=== PATIENT | female | born 1950 | race Caucasian/White ===

== ENCOUNTER → 2017-03-26 09:30 | Outpatient (CLI) | payer MEDICARE, OTHER, SELFPAY ==
--- NOTE | 2017-03-26 10:05 | XR_ITS ---
XR chest 2V HISTORY: ITS.REASON: SHORTNESS OF BREATH ORDERING PHYSICIAN: Lolly Larios PATIENT AGE: 66 years COMPARISON: None available FINDINGS: Mild cardiomegaly without failure.. The lungs are clear without infiltrates, suspicious nodules, or pleural effusions. Degenerative change thoracic spine. IMPRESSION: Cardiomegaly, no acute finding
[2017-03-26 10:25] LABS: Basophils # 0.1 K/mm3 (0-0.2); Basophils % 0.6 % (0.1-2.0); Eosinophils # 0.5 K/mm3 (0.0-0.4); Eosinophils % 6.4 % (0.1-12.0); Hematocrit 43.5 % (37.0-47.0); Hemoglobin 14.2 g/dL (12.2-16.2); Lymphocytes # 1.4 K/mm3 (0.7-4.5); Lymphocytes % 16.7 K/mm3 (10-50); Mean Corpuscular HGB Conc 32.6 g/dL (31.8-35.4); Mean Corpuscular Hemoglobin 28.6 pg (27.0-31.2); Mean Corpuscular Volume 87.7 fl (81-99); Monocytes # 0.5 K/mm3 (0.1-1.0); Monocytes % 5.9 % (1.7-9.3); Neutrophils # 5.8 K/mm3 (1.8-7.8); Neutrophils % 70.4 % (37.0-80.0); Platelet Count 276 K/mm3 (142-424); Red Blood Count 4.96 M/mm3 (4.20-5.40); Red Cell Distribution Width 14.7 % (11.5-17.5); White Blood Count 8.3 K/mm3 (4.8-10.8)
[2017-03-26 12:01] LABS: Alanine Aminotransferase 51 U/L (12-78); Albumin Level 4.3 gm/dL (3.4-5.0); Albumin/Globulin Ratio 1.3 (1.1-1.8); Alkaline Phosphatase 75 U/L (46-116); Anion Gap 15.9 mEq/L (5-15); Aspartate Amino Transferase 47 U/L (15-37); Bilirubin,Total 0.5 mg/dL (0.2-1.0); Blood Urea Nitrogen 13 mg/dL (7-18); Calcium 9.6 mg/dL (8.5-10.1); Carbon Dioxide 26 mmol/L (21.0-32.0); Chloride 105 mmol/L (98-107); Creatinine,Serum 0.94 mg/dL (0.55-1.02); Estimated Glomerular Filt Rate 60 ml/min (>60); GFR (African American) 72 ML/MIN (>60); Globulin 3.4 gm/dl (1.3-3.2); Glucose 168 mg/dL (74-106); Potassium 3.9 mmoL/L (3.5-5.1); Sodium 143 mmol/L (136-145); Total Protein,Serum 7.7 gm/dL (6.4-8.2)
== END ==
PROVIDERS: PCP Nurse Practitioner Family; Visit Provider Nurse Practitioner Family
DX: J18.9 Pneumonia, unspecified organism (principal); R06.02 Shortness of breath
CPT/HCPCS: 36415; 71046; 80053; 85025

== ENCOUNTER → 2017-04-15 09:42 | Outpatient (CLI) | payer MEDICARE, OTHER, SELFPAY ==
[2017-04-15 10:15] VITALS: PULSE 78
== END ==
PROVIDERS: Family Provider Nurse Practitioner Family; PCP Nurse Practitioner Family; Visit Provider Nurse Practitioner Family
DX: R06.02 Shortness of breath (principal); J45.20 Mild intermittent asthma, uncomplicated
CPT/HCPCS: 94060; 94640

== ENCOUNTER → 2017-04-16 06:53 | Outpatient (CLI) | payer MEDICARE, OTHER, SELFPAY ==
--- NOTE | 2017-04-16 | CA_ITS ---
PROCEDURE: 2-D M-mode and color Doppler study INDICATIONS FOR THE TEST: Chest pain+ COPD Heart Murmur+ Tobacco Smoking Palpitations Fatigue Syncope Edema Hypertension+Diabetes Mellitus Rheumatic Fever SOB JACOBS+Obesity+Hyperlipidemia Family History HD Additional History PATIENT INFORMATION HEIGHT: 64 WEIGHT:247 GENDER: Female B/P:134/68 2-D/M-MODE INTERPRETATION: 2-D MEASUREMENTS OBSERVED VALUES IN CMS Right Ventricular Dimension (RVDd) 2.4 Interventricular Septum (Thickness)(IVsd) 1.3 Left Ventricular Internal Dimensions(LVIDd) 4.8 Left Ventricular Posterior Wall (Thickness)(LVPWd) 1.2 Aortic Root 3.1 Aortic Cusp Separation 2.3 Left Atrial Dimensions (LAD) 4.2 2D 1. Left atrium is mildly enlarged, left ventricle is normal size, there is mild concentric left ventricular hypertrophy, visually estimated ejection fraction 55% with no obvious regional wall motion abnormality. 2. The right atrium and right ventricle are normal size and contractility. 3. The aortic valve is minimally thickened and fibrosed. 4. The mitral valve has mitral calcification, there is no mitral stenosis. 5. The tricuspid valve is grossly normal. 6. The pulmonic valve is poorly visualized. 7. No significant pericardial effusion noted. DOPPLER INTERROGATION: Doppler interrogation of the aortic, mitral and tricuspid valve reveals presence of mild mitral and tricuspid regurgitation, tricuspid regurgitant jet velocity insufficient for calculation of the right ventricular systolic pressure, grade 1 diastolic dysfunction seen with tissue Doppler evidence of raised left atrial pressure. CONCLUSION: 1. Mildly enlarged left atrium, normal left ventricular size, mild concentric left ventricular hypertrophy, visually estimated ejection fraction 55% with no obvious regional wall motion abnormality, grade 1 diastolic dysfunction seen with tissue Doppler evidence of raised left atrial pressure. 2. Mild mitral and tricuspid regurgitation 3. No significant pericardial effusion noted.
--- NOTE | 2017-04-16 06:55 | NM_ITS ---
History and Indications: Obesity, hypertension, diabetes hyperlipidemia Procedure: Patient received a 0.4 mg of Lexiscan, resting heart rate was 71 resting blood pressure 134/68, with Lexiscan maximum heart rate achieved was 98 bpm which is less than 85% of the maximum predicted heart rate and a blood pressure was 132/64. With Lexiscan patient under shortness of breath and stomach discomfort. Electrocardiogram: Resting electrocardiogram showed sinus rhythm, with Lexiscan there is less than 1.[address] segment depression noted from the baseline EKG. The EKG portion of the Lexiscan Myoview is nondiagnostic. Cardiac stress and resting SPECT images: Cardiac stress and rest SPECT images were obtained using technetium 99 Myoview 10.7 mCi at rest and 29.1 mCi at stress, gated SPECT further analysis of segmental wall motion and calculation of the ejection fraction also done. Cardiac stress and rest SPECT images show decreased tracer activity in the anteroapical ,anteroseptal wall which improves on the resting images suggestive of reversible ischemia, computer derived ejection fraction is over 65% with no obvious regional wall motion abnormality, right ventricle is normal size and contractility. Conclusion: 1. The EKG portion of the Lexiscan Myoview is nondiagnostic. 2. Scintigraphic evidence of mild reversible ischemia involving the anterior, anteroapical and anteroseptal wall, computer derived ejection fraction is over 65% with no obvious regional wall motion abnormality, right ventricle is normal size and contractility. 3. Abnormal Lexiscan Myoview study.
--- NOTE | 2017-04-16 06:55 | CT_ITS ---
CT heart w calcium score CLINICAL INDICATION: Shortness of air, cardiomegaly ORDERING PHYSICIAN: Aneudy Dennison MD PATIENT AGE: 66 years COMPARISON: None FINDINGS: The coronary artery calcium score is 891 indicating an extensive plaque burden with very high cardiovascular disease risk. IMPRESSION: High cardiovascular disease risk with elevated coronary artery calcium score of 891
--- NOTE | 2017-04-16 09:23 | HMH.ITSHM ---
METFORMIN, NIFEDIPINE, PREVASTATIN, LISINOPRIL, GLYBURISE, FENOFIBRATE, ASPIRIN
== END ==
PROVIDERS: Family Provider Nurse Practitioner Family; PCP Nurse Practitioner Family; Visit Provider Internal Medicine Cardiovascular Disease
DX: R06.00 Dyspnea, unspecified (principal); R06.02 Shortness of breath; R06.01 Orthopnea; R09.89 Other specified symptoms and signs involving the circulatory and respiratory systems; R01.1 Cardiac murmur, unspecified; I51.7 Cardiomegaly; I10 Essential (primary) hypertension; Z82.49 Family history of ischemic heart disease and other diseases of the circulatory system; E78.5 Hyperlipidemia, unspecified
CPT/HCPCS: 75571; 78452; 93017; 93306; A9502; J2785

== ENCOUNTER → 2017-04-23 11:16 | Outpatient (CLI) | payer MEDICARE, OTHER, SELFPAY ==
[2017-04-23 12:03] LABS: Basophils # 0.1 K/mm3 (0-0.2); Basophils % 0.6 % (0.1-2.0); Eosinophils # 0.6 K/mm3 (0.0-0.4); Eosinophils % 7.4 % (0.1-12.0); Hematocrit 41.6 % (37.0-47.0); Hemoglobin 13.6 g/dL (12.2-16.2); Lymphocytes # 1.2 K/mm3 (0.7-4.5); Lymphocytes % 16.4 K/mm3 (10-50); Mean Corpuscular HGB Conc 32.6 g/dL (31.8-35.4); Mean Corpuscular Hemoglobin 28.4 pg (27.0-31.2); Mean Corpuscular Volume 87.1 fl (81-99); Monocytes # 0.5 K/mm3 (0.1-1.0); Monocytes % 6.6 % (1.7-9.3); Neutrophils # 5.1 K/mm3 (1.8-7.8); Neutrophils % 68.9 % (37.0-80.0); Platelet Count 243 K/mm3 (142-424); Red Blood Count 4.78 M/mm3 (4.20-5.40); Red Cell Distribution Width 14.6 % (11.5-17.5); White Blood Count 7.4 K/mm3 (4.8-10.8)
[2017-04-23 12:34] LABS: INR 0.99 (0.9-1.1); Prothrombin Time 10.7 seconds (9.4-11.8)
[2017-04-23 13:00] LABS: Anion Gap 14.6 mEq/L (5-15); Blood Urea Nitrogen 19 mg/dL (7-18); Carbon Dioxide 28 mmol/L (21.0-32.0); Chloride 109 mmol/L (98-107); Creatinine,Serum 0.76 mg/dL (0.55-1.02); Estimated Glomerular Filt Rate 76 ml/min (>60); GFR (African American) 92 ML/MIN (>60); Glucose 113 mg/dL (74-106); Potassium 4.6 mmoL/L (3.5-5.1); Sodium 147 mmol/L (136-145)
== END ==
PROVIDERS: PCP Nurse Practitioner Family; Visit Provider Internal Medicine Cardiovascular Disease
DX: I65.23 Occlusion and stenosis of bilateral carotid arteries (principal); I10 Essential (primary) hypertension; E78.5 Hyperlipidemia, unspecified; Z82.49 Family history of ischemic heart disease and other diseases of the circulatory system; R06.09 Other forms of dyspnea
CPT/HCPCS: 36415; 80048; 85025; 85610

== ENCOUNTER → 2017-04-26 14:46 | Outpatient (CLI) | payer MEDICARE, OTHER, SELFPAY ==
--- NOTE | 2017-04-26 14:47 | CI_ITS ---
Cerebrovascular Exam Indications: 785.9 Bruit. IMPRESSIONS 1. The bilateral vertebral arteries are patent with normal antegrade flow. 2. Study suggests less than 20% stenosis involving the right internal carotid artery and the left internal carotid artery. 3. Tortuous carotid arteries seen on the left History: Risk factors: Hypertension. Hyperlipidemia. Carotid duplex study. Complete study and Doppler flow study including spectral analysis, color and romo scale imaging. Height: Height: 162.6cm. Height: 64in. Weight: Weight: 112kg. Weight: 246.5lb. Body mass index: BMI: 42.4kg/m^2. Body surface area: BSA: 2.31m^2. Location: Vascular laboratory. Patient status: Outpatient. Tables: Arterial flow: + +--------+--------+ Location V sys V ed + +--------+--------+ Right CCA - proximal 86.4cm/s 14.1cm/s + +--------+--------+ Right CCA - distal 89.6cm/s 15.7cm/s + +--------+--------+ Right ECA 108cm/s -------- + +--------+--------+ Right ICA - proximal 105cm/s 14.9cm/s + +--------+--------+ Right ICA - mid 55cm/s 13.4cm/s + +--------+--------+ Right ICA - distal 64.4cm/s 14.9cm/s + +--------+--------+ Right vertebral 35.4cm/s -------- + +--------+--------+ Left CCA - proximal 99cm/s 11cm/s + +--------+--------+ Left CCA - distal 125cm/s 13.4cm/s + +--------+--------+ Left ECA 64.4cm/s -------- + +--------+--------+ Left ICA - proximal 69.9cm/s 10.2cm/s + +--------+--------+ Left ICA - mid 61.3cm/s 16.5cm/s + +--------+--------+ Left ICA - distal 80.9cm/s 13.4cm/s + +--------+--------+ Left vertebral 46.4cm/s -------- + +--------+--------+ Velocity ratios: + + + + + + Right, V sys Right, V ed Left, V sys Left, V ed + + + + + + Max ICA/dist CCA 1.17 0.95 0.65 1.23 + + + + + + (Report amended ) Electronically signed by: Griffin Greene [id number]
== END ==
PROVIDERS: Family Provider Nurse Practitioner Family; PCP Nurse Practitioner Family; Visit Provider Internal Medicine
DX: R09.89 Other specified symptoms and signs involving the circulatory and respiratory systems (principal); I51.7 Cardiomegaly; R01.1 Cardiac murmur, unspecified; I10 Essential (primary) hypertension; E78.5 Hyperlipidemia, unspecified; Z82.49 Family history of ischemic heart disease and other diseases of the circulatory system; R06.09 Other forms of dyspnea
CPT/HCPCS: 93880

== ENCOUNTER 2017-04-27 06:59 | Day surgery (SDC) | payer MEDICARE, OTHER, SELFPAY ==
[2017-04-27] VITALS (15 sets, daily range): BP systolic 113–137; BP diastolic 61–88; PULSE 61–74; RESP 16–20; TEMP 36.7; O2SAT 92–97; BMI 43.2
--- NOTE | 2017-04-27 | IR_ITS ---
CARDIAC CATHETERIZATION DATE OF CATHETERIZATION:04/27/2017 8:47 AM PROCEDURES: 1. Left heart catheterization 2. Left ventriculogram 3. Selective coronary angiogram 4. Drug-eluting stent deployment to the dominant circumflex artery 5. Drug-eluting stent deployment to the proximal and mid left anterior descending artery INDICATION FOR TEST: 1. Coronary artery disease 2. Angina pectoris class III and IV 3. High risk abnormal stress test with anterior apical ischemia Informed consent was obtained prior to the procedure. COMPLICATIONS: None ESTIMATED BLOOD LOSS: Less than 10 ml. TECHNIQUE: One percent lidocaine used to anesthetize the right anterior aspect of the wrist. The right radial artery was accessed via the Seldinger technique. A 6 [place] sheath was placed in the right radial artery. 2.5 mg of verapamil, 800 mcg of nitroglycerin and 5000 U Heparin were given through the arterial sheath. The trap catheter was also used to perform left heart catheterization left ventriculogram and selective coronary angiogram. At the end of the diagnostic angiogram and additional 7000 units of heparin was administered intravenously producing an ACT of 333 seconds. Following this a JL 3 guide catheter was used to intubate the left main artery. A choice PT wire was placed into the high first obtuse marginal artery or the ramus intermedius and a 2.5 x 15 mm resolute Union stent was deployed at 16 viviana reducing the severe stenosis to 0%. A fresh wire was in placed into the LAD. Primary stenting with a 3 mm stent could not be performed even with the guideliner the stent could not be advanced beyond the stenotic lesion. A 3 mm x 12 mm balloon was used to predilate the stenosis at 20 viviana. Following this a 3 mm x 34 mm resolute Union stent was deployed at 18 viviana reducing the severe stenosis to 0%. An additional 3.5 x 12 mm resolute Hugo stent was placed proximal to the first LAD stent yet still overlapping it and deployed at 18 viviana further reducing the proximal stenosis to 0%. PINO-3 flow was present before and after the procedure. At the end of the interventional procedure the ACT was 247 seconds. Patient did not receive her Brilinta yet therefore an additional 4000 units of heparin was administered intravenously and Brilinta was administered orally along with 325 mg of aspirin. The sheath was removed good hemostasis was achieved using TR banding patient was transferred to the postop holding area in stable condition ANGIOGRAPHIC RESULTS: 1. The left main artery normal 2. The left anterior descending artery has proximal 20% stenoses followed by a focal mid vessel 70% stenosis followed by an additional 40% stenosis. Distally there were 50% stenoses in the mid to distal LAD and an additional 70-80% very distal stenosis as the LAD at the apex. 3. The circumflex artery is a dominant vessel and gives rise to a large first ramus intermedius or obtuse marginal artery which has a proximal 70% concentric stenosis. The second obtuse marginal artery has an ostial 80-90% stenosis and is a 1.5 mm vessel. The terminal obtuse marginal artery has 40% stenoses 4. The right coronary artery is a nondominant vessel and proximally occluded. The distal vessel fills via left to right collaterals 5. The YAN ventriculogram reveals hyperdynamic ventricle estimated at 70% 6. The left ventricular end-diastolic pressure elevated at 30 mmHg IMPRESSION: 1. Severe coronary artery disease as described above 2. Successful stenting of the proximal and mid LAD severe disease reduced to 0% with 2 drug-eluting stents 3. Successful stenting of the proximal dominant circumflex artery/ramus intermedius. Severe disease reduced to 0% with 1 drug-eluting stent 4. Chronically occluded right coronary artery with left to
[2017-04-27 07:54] LABS: Basophils # 0.1 K/mm3 (0-0.2); Basophils % 0.8 % (0.1-2.0); Eosinophils # 0.5 K/mm3 (0.0-0.4); Eosinophils % 6.3 % (0.1-12.0); Hematocrit 41.2 % (37.0-47.0); Hemoglobin 13.1 g/dL (12.2-16.2); Lymphocytes # 1.3 K/mm3 (0.7-4.5); Lymphocytes % 17.9 K/mm3 (10-50); Mean Corpuscular HGB Conc 31.8 g/dL (31.8-35.4); Mean Corpuscular Hemoglobin 27.8 pg (27.0-31.2); Mean Corpuscular Volume 87.4 fl (81-99); Mean Platelet Volume 7.8 fl (7.4-10.4); Monocytes # 0.4 K/mm3 (0.1-1.0); Monocytes % 6.1 % (1.7-9.3); Platelet Count 244 K/mm3 (142-424); Red Blood Count 4.72 M/mm3 (4.20-5.40); Red Cell Distribution Width 14.5 % (11.5-17.5); White Blood Count 7.2 K/mm3 (4.8-10.8)
[2017-04-27 07:56] LABS: Anion Gap 14.1 mEq/L (5-15); Blood Urea Nitrogen 15 mg/dL (7-18); Carbon Dioxide 26 mmol/L (21.0-32.0); Chloride 105 mmol/L (98-107); Creatinine Clearance Estimated 48 mL/min (0-300); Estimated Glomerular Filt Rate 72 ml/min (>60); GFR (African American) 87 ML/MIN (>60); Glucose 177 mg/dL (74-106); Potassium 4.1 mmoL/L (3.5-5.1); Sodium 141 mmol/L (136-145)
[2017-04-27 15:07] LABS: CATHL Activated Clotting Time 247 SEC (74-125)
[2017-04-27 15:08] LABS: CATHL Activated Clotting Time 333 SEC (74-125)
== END 2017-04-27 13:30 | disposition home or self-care (01) ==
PROVIDERS: Family Provider Nurse Practitioner Family; PCP Nurse Practitioner Family; Visit Provider Internal Medicine
DX: I51.7 Cardiomegaly (principal); I25.119 Atherosclerotic heart disease of native coronary artery with unspecified angina pectoris; I25.5 Ischemic cardiomyopathy; I50.30 Unspecified diastolic (congestive) heart failure; I11.0 Hypertensive heart disease with heart failure; E11.9 Type 2 diabetes mellitus without complications
CPT/HCPCS: 80048; 85025; 85347; 92928; 93458; 99152; 99153; C1725; C1769; C1876; C9600; J1644; Q9967

== ENCOUNTER 2017-05-11 09:50 | Outpatient (RCR) | payer MEDICARE, OTHER, SELFPAY | END 2017-07-14 11:13 | disposition home or self-care (01) | LOC: PT 09:50 | PROVIDERS: Family Provider Nurse Practitioner Family; PCP Nurse Practitioner Family; Visit Provider Internal Medicine | DX: Z95.5 Presence of coronary angioplasty implant and graft (principal) | CPT/HCPCS: 93798 ==

== ENCOUNTER → 2017-05-20 09:22 | Outpatient (CLI) | payer MEDICARE, OTHER, SELFPAY ==
--- NOTE | 2017-05-20 09:31 | XR_ITS ---
XR ankle LT min 3V HISTORY: ITS.REASON: ACUTE LT ANKLE PAIN ORDERING PHYSICIAN: Lolly Larios PATIENT AGE: 66 years COMPARISON: None FINDINGS: No fracture or dislocation. Hypertrophic changes are present at the medial malleolus region and to a lesser degree at the lateral malleolus and could be related to old injury. Space is well-preserved. Calcaneal spur is present and there is an enthesophyte of the Achilles. There is minimal calcification along the plantar surface of the heel superficial to the calcaneal spur. IMPRESSION: 1. No acute finding. 2. Hypertrophic changes about the ankle and heel as described above
== END ==
PROVIDERS: PCP Family Medicine; Visit Provider Nurse Practitioner Family
DX: M25.572 Pain in left ankle and joints of left foot (principal)
CPT/HCPCS: 73610

== ENCOUNTER → 2018-03-31 11:29 | Outpatient (CLI) | payer MEDICARE, OTHER, SELFPAY ==
--- NOTE | 2018-03-31 11:36 | XR_ITS ---
XR knee LT 3V HISTORY: Left knee pain ITS.REASON: LT KNEE PAIN ORDERING PHYSICIAN: Lolly Larios PATIENT AGE: 67 years COMPARISON: None FINDINGS: There are moderate osteoarthritic changes of the medial compartment and patellofemoral joint with mild osteoarthritis of the lateral compartment. Osteophytes are present about the knee joint. No fracture or dislocation. No lytic or blastic change. IMPRESSION: Moderate osteoarthritis of the knee
== END ==
PROVIDERS: PCP Nurse Practitioner Family; Visit Provider Nurse Practitioner Family
DX: M25.562 Pain in left knee (principal)
CPT/HCPCS: 73562

== ENCOUNTER → 2018-07-11 09:31 | Outpatient (CLI) | payer MEDICARE, OTHER, SELFPAY ==
--- NOTE | 2018-07-11 09:39 | XR_ITS ---
EXAM: XR lumbar spine min 4V HISTORY: ITS.REASON: LEFT SIDED LOW BACK PAIN ORDERING PHYSICIAN: Lolly Larios APRN PATIENT AGE: 68 years COMPARISON: None FINDINGS: There is minimal upper lumbar curvature convex right. There is degenerative disc disease in the lower thoracic spine and T12-L1. No fracture or dislocation. There are mild facet hypertrophic changes at L3 and moderate facet hypertrophic changes at L4 and L5. Mild degenerative changes are present in the SI joints. No fracture or dislocation. No lytic or blastic change IMPRESSION: 1. No acute finding. 2. Degenerative changes as described above
== END ==
PROVIDERS: PCP Nurse Practitioner Family; Visit Provider Nurse Practitioner Family
DX: M54.42 Lumbago with sciatica, left side (principal)
CPT/HCPCS: 72110

== ENCOUNTER → 2019-08-30 09:57 | Outpatient (CLI) | payer MEDICARE, OTHER, SELFPAY ==
--- NOTE | 2019-08-30 10:05 | XR_ITS ---
PROCEDURE: XR FOOT RT MIN 3V CLINICAL INDICATION: SWELLING OF TOE RT FOOT COMPARISON: No exams were available for comparison FINDINGS: There is a nondisplaced fracture involving the mid aspect of the proximal phalanx of the great toe The joint spaces are well-preserved. No significant degenerative/arthritic changes. No erosive changes evident. Other findings:Type 1 os navicularis is present. IMPRESSION: Nondisplaced fracture proximal phalanx great toe Dictated by: Griffin Greene MD 08/30/2019 14:08 Electronically signed by Griffin Greene MD in [place] 08/30/2019 14:08
== END ==
PROVIDERS: PCP Nurse Practitioner Family; Visit Provider Nurse Practitioner
DX: M79.89 Other specified soft tissue disorders (principal)
CPT/HCPCS: 73630

== ENCOUNTER → 2019-09-18 09:34 | Outpatient (CLI) | payer MEDICARE, OTHER, SELFPAY ==
--- NOTE | 2019-09-18 09:40 | XR_ITS ---
PROCEDURE: XR FOOT RT MIN 3V CLINICAL INDICATION: FRACTURE OF PROXIMAL PHALANX OF TOE ON R FOOT COMPARISON: XR FOOT RT MIN 3V from 08/30/2019 FINDINGS: Healing fracture involves the proximal phalanx of the great toe distally extending into the articular surface of the interphalangeal joint.. Fracture line is still visible. There is some developing callus formation The joint spaces are well-preserved. No significant degenerative/arthritic changes. No erosive changes evident. Other findings:None. IMPRESSION: Healing nondisplaced fracture proximal phalanx great toe Dictated by: Griffin Greene MD 09/18/2019 14:14 Electronically signed by Griffin Greene MD in [place] 09/18/2019 14:14
== END ==
PROVIDERS: PCP Nurse Practitioner Family; Visit Provider Nurse Practitioner Family
DX: S92.911A Unspecified fracture of right toe(s), initial encounter for closed fracture (principal)
CPT/HCPCS: 73630

== ENCOUNTER → 2019-09-22 09:28 | Outpatient (CLI) | payer MEDICARE, OTHER, SELFPAY ==
--- NOTE | 2019-09-22 09:28 | CA_ITS ---
APPROVED REPORT Airplane First Officer: Valerie Mcgrath RVT Laterality: Bilateral Study Quality: Good Indications: Carotid stenosis Risk Factors Hypertension: Hyperlipidemia Smoking Doppler Spectral Velocity Analysis ECA (R) 90.80/8.70 cm/s ECA (L) 90.70/4.00 cm/s dICA (R) 70.90/16.80 cm/s dICA (L) 73.40/20.80 cm/s Remigio (R) 46.00/8.10 cm/s Remigio (L) 55.50/15.30 cm/s pICA (R) 89.00/13.10 cm/s pICA (L) 33.30/8.30 cm/s dCCA (R) 102.60/11.40 cm/s dCCA (L) 120.90/15.10 cm/s pCCA (R) 96.00/12.80 cm/s pCCA (L) 114.00/11.00 cm/s Vert (R) 37.10/8.90 cm/s Vert (L) 33.00/10.60 cm/s ICA/CCA 0.87 ICA/CCA 0.61 Conclusion Study suggests less than 20% stenosis of the right internal cartoid artery, unchanged from the 04/26/17 study. Study suggests 20-49% stenosis of the left internal cartoid artery, worsened from the 04/26/17 study. Antegrade flow seen bilateral vertebral arteries. Electronically signed by : Griffin Greene MD 09/22/2019 17:45:07
== END ==
PROVIDERS: PCP Nurse Practitioner Family; Visit Provider Urology
DX: I65.23 Occlusion and stenosis of bilateral carotid arteries (principal)
CPT/HCPCS: 93880

== ENCOUNTER 2020-01-13 08:53 | Emergency (ER) | payer MEDICARE, OTHER, SELFPAY ==
--- NOTE | 2020-01-13 09:10 | XR_ITS ---
PROCEDURE: XR ANKLE RT MIN 3V CLINICAL INDICATION: fall Posttraumatic pain and swelling COMPARISON: No exams were available for comparison FINDINGS: Mild soft tissue swelling is present overlying the lateral malleolus. Mild hypertrophic changes are present at the medial and lateral malleolar region. There is a small calcaneal spur with some calcification along the plantar fascia posteriorly. Small Achilles enthesophyte is present. IMPRESSION: 1. No acute fracture. 2. Degenerative changes Dictated by: Griffin Greene MD 01/13/2020 09:36 Griffin Greene MD in [place] 01/13/2020 09:36
--- NOTE | 2020-01-13 09:10 | XR_ITS ---
PROCEDURE: XR FOOT RT MIN 3V CLINICAL INDICATION: fall Injury with pain and swelling COMPARISON: CR XR FOOT RT MIN 3V from 08/30/2019 CR XR FOOT RT MIN 3V from 09/18/2019 FINDINGS: There is a healing fracture involving the distal aspect of the proximal phalanx of the great toe. No acute fracture or dislocation. There is a bipartite os navicularis. There is calcification along the plantar fascia posteriorly. Ununited ossification center is present at the base of the 5th metatarsal similar to the previous exam IMPRESSION: No acute findings. Dictated by: Griffin Greene MD 01/13/2020 09:38 Griffin Greene MD in [place] 01/13/2020 09:38
[2020-01-13 09:22] VITALS: BP 141/77; PULSE 77; RESP 18; TEMP 36.9; O2SAT 98; BMI 25.7
--- NOTE | 2020-01-13 09:26 | HMH.EDUTC ---
[facility] [place] Disposition Clinical Impression: Ankle sprain Qualifiers: Encounter type: initial encounter Involved ligament of ankle: unspecified ligament Laterality: right Qualified Code(s): S93.401A - Sprain of unspecified ligament of right ankle, initial encounter Disposition: Home, Self-Care Condition on Discharge: Good Instructions: Ankle Sprain, DI for Ankle Sprain, How To Perform RICE (Rest, Ice, Compress, Elevate) Additional Instructions: *weight bearing as tolerated *RICE, Rest the extremity, Ice 15-20 minutes 3-4 times daily, Compress- wear the vega wrap as discussed as much as possible to help reduce swelling and pain, Elevate the extremity when at rest *Vega wrap is for support and help control swelling, use it except in the shower. Be sure that is not to tight but not to loose either *Elevate when resting *Ibuprofen every 6-8 hours as needed for pain an inflammation. If need something more can take Tylenol in between doses of Ibuprofen to help Follow up with Podiatry if no improvement Follow up with Family Doctor if no improvement or any worsening of symptoms Referrals: Brad Gant MD [Primary Care Provider] - As needed Madonna Talavera DPM [Staff Physician] - Mojgan Norris APRN [Nurse Practitioner] - Time of Disposition: 09:48 Medical Decision Making - Fabian Inquiry Pt receiving controlled substance: No Fabian was queried for this patient: No Vital Signs: 01/13/20 09:22 Temperature 98.4 F Temperature Source Oral Pulse Rate [Radial] 77 Respiratory Rate 18 Blood Pressure [Right Arm] 141/77 H Blood Pressure Mean [Right Arm] 98 Blood Pressure Source [Right Arm] Automatic Cuff Blood Pressure Position [Right Arm] Sitting 02 Sat by Pulse Oximetry 98 Oxygen Delivery Method Room Air - Radiology Data #1 Image(s): Foot/Toes Image Reviewed: Yes I have reviewed radiologist's interpretation Preliminary Findings: No Fracture Seen No acute findings. #2 Image(s): Ankle Image Reviewed: Yes I have reviewed radiologist's interpretation Preliminary Findings: No Fracture Seen 1. No acute fracture. 2. Degenerative changes [facility] [place] HPI - General Stated complaint: Ao 01/11/20 fall, rt foot swelling Time Seen by Provider: 01/13/20 09:26 Mode of Arrival: Ambulatory Source of Information: Patient Limitations: No Limitations Description of Symptoms (Recalled from Triage Doc. by RN): fell down a step and injured right foot and ankle HEENT Symptoms (Recalled from RN notes): No Resp Symptoms (Recalled from RN notes): No Skin Symptoms (Recalled from RN notes): No MS Symptoms (Recalled from RN notes): Yes Functional Status (Recalled from RN notes): wnl - History of Present Illness Provider Complaint: Patient states that she was walking down the steps on when she slipped and rolled her right ankle States that ever since she has been having swelling and bruising to her right ankle States that today she was still having some swelling and a clicking like feeling in her ankle/foot so she come in - Related Data Home Medications Medication Instructions Recorded Confirmed aspirin 81 mg tablet,delayed 81 mg PO QDAY 04/07/17 09/19/19 release empagliflozin 25 mg-linagliptin 5 1 tab PO QAM 04/07/17 09/19/19 mg tablet fenofibrate 160 mg tablet 160 mg PO QDAY tab 04/07/17 09/19/19 lisinopril 2.5 mg tablet 2.5 mg PO QDAY 04/07/17 09/19/19 metformin 500 mg tablet 1,000 mg PO BID 04/07/17 09/19/19 pravastatin 80 mg tablet 80 mg PO QHS 04/07/17 09/19/19 cyanocobalamin (vitamin B-12) 500 500 mcg PO QDAY 04/09/17 09/19/19 mcg tablet cholecalciferol (vitamin D3) 50 2,000 unit PO DAILY tab 05/04/17 09/19/19 mcg (2,000 unit) tablet budesonide-formoterol HFA 80 1 inh INHALATION BID PRN g 08/23/17 09/19/19 mcg-4.5 mcg/actuation aerosol inhaler estradiol 10 mcg vaginal tablet 10 mcg VAGINAL .TWICE WEEKLY tab 01/04/18 09/19/19 nifedipine 30 mg tablet,extended 30 mg PO DAILY tab 01/04/18 09/19/19 r
[2020-01-13 10:01] VITALS: BP 141/77; PULSE 77; RESP 18; TEMP 36.9; O2SAT 98
== END 2020-01-13 10:02 | disposition home or self-care (01) ==
PROVIDERS: Emergency Provider Nurse Practitioner; PCP Family Medicine
DX: S93.401A Sprain of unspecified ligament of right ankle, initial encounter (principal); W10.9XXA Fall (on) (from) unspecified stairs and steps, initial encounter; Y92.019 Unspecified place in single-family (private) house as the place of occurrence of the external cause; I25.10 Atherosclerotic heart disease of native coronary artery without angina pectoris; E78.5 Hyperlipidemia, unspecified; I10 Essential (primary) hypertension; G43.709 Chronic migraine without aura, not intractable, without status migrainosus; Z87.891 Personal history of nicotine dependence
CPT/HCPCS: G0463; 73610; 73630; 99201

== ENCOUNTER → 2020-03-22 10:10 | Outpatient (CLI) | payer MEDICARE, OTHER, SELFPAY ==
--- NOTE | 2020-03-22 10:11 | CA_ITS ---
APPROVED REPORT EXAM: Comprehensive 2D, Doppler, and color-flow Echocardiogram [employer] Floor Installation Helper: Erna Kate RT(R) Ht: 5 ft 4 in Wt: 253lbs BSA: 2.16 BP: 128/82 mmHg Indications: ex smoker, HTN, DM, SOB, hyperlipidemia, CAD, EDWARD, CM 2D Dimensions LVOT 2.00 cm (M/F) 1.5-2.5 M-Mode Dimensions RVDd 2.41 cm (0.9-2.6) LA Diam 4.89 cm (1.9-4.0) LVDd 4.65 cm (3.5-5.7) Ao Diam 2.83 cm (2.0-3.7) LVDs 3.44 cm (3.5-5.7) IVSd 1.03 cm (0.6-1.1) PWd 1.21 cm (0.6-1.1) EF (Teich) 51.10% FS 26.00% EDV (Teich) 99.80 mL ESV (Teich) 48.80 mL LV Diastology E Decel Time 213.00 (160-240 msec) E/A Ratio 1.00 MED E' 6.80 (< 7 cm/sec) E'/MED E' Ratio 15.29 (>14) LAT E' 7.70 (<10 cm/sec) E/LAT E' Ratio 13.51 (>14) Mitral Valve MV E Max Duc. 104.00 (40-130 cm/s) MV A Velocity 104.00 (40-130 cm/s) E/A Ratio 1.00 MV Decel. Time 213.00 (160-240 ms) MV PHT 62.00 ms Left Ventricle Left atrium is mildly enlarged, left ventricle is normal size, mild concentric left ventricular hypertrophy, visually estimated ejection fraction 55% with no regional wall motion abnormality. Grade 1 diastolic dysfunction seen without tissue Doppler evidence of raise left atrial pressure. Right Ventricle Right atrium and right ventricle are normal size and contractility. Aortic Valve Aortic valve is minimally thickened and fibrosed, there is no aortic stenosis or aortic insufficiency. Mitral Valve Mitral valve is minimally thickened, there is no mitral stenosis, there is mild mitral regurgitation. Tricuspid Valve Tricuspid valve is grossly normal, there is mild tricuspid regurgitation, tricuspid regurgitation jet velocity is inadequate for calculation of the right ventricular systolic pressure. Pulmonic Valve Pulmonic valve is poorly visualized. Great Vessels Aortic root is normal size. Pericardium There is small pericardial effusion and anterior echo-free space seen. Conclusion 1. Mildly enlarged left atrium, normal left ventricular size, mild concentric left ventricular hypertrophy, visually estimated ejection fraction 55% with no regional wall motion abnormality, grade 1 diastolic dysfunction seen without tissue Doppler evidence of raise left atrial pressure. 2. Mild mitral and tricuspid regurgitation. 3. Small pericardial effusion and anterior echo-free space seen. Electronically signed by : Aneudy Dennison, 03/22/2020 12:08:23
== END ==
PROVIDERS: PCP Family Medicine; Visit Provider Nurse Practitioner Family
DX: E11.9 Type 2 diabetes mellitus without complications (principal); E78.2 Mixed hyperlipidemia; I10 Essential (primary) hypertension; I25.10 Atherosclerotic heart disease of native coronary artery without angina pectoris; I65.23 Occlusion and stenosis of bilateral carotid arteries; R06.02 Shortness of breath; Z79.84 Long term (current) use of oral hypoglycemic drugs
CPT/HCPCS: 93306

== ENCOUNTER → 2020-08-27 09:14 | Outpatient (CLI) | payer MEDICARE, OTHER, SELFPAY ==
--- NOTE | 2020-08-27 09:20 | XR_ITS ---
PROCEDURE: XR LUMBAR SPINE MIN 4V CLINICAL INDICATION: LUMBAGHO W/ SCIATICA, RT SIDE COMPARISON: No exams were available for comparison FINDINGS: Slight scoliosis convex to the right. Extensive degenerative changes of the lower thoracic spine with moderate degenerative change of L1-2 and mild diffuse degenerative change elsewhere throughout the lumbar spine. No definite acute fracture or subluxation. SI joints are normal. Moderate bilateral facet spondylosis of L4-5 and L5-S1. Cholecystectomy clips noted. SI joints are normal. IMPRESSION: Extensive degenerative changes of the lower thoracic spine and moderate degenerative change at L1-2 with mild diffuse degenerative change elsewhere throughout the lumbar spine. No acute fracture or subluxation. Some bilateral facet spondylosis at L4-5 and L5-S1. Dictated by: Sean Villanueva 08/27/2020 11:14 Sean Villanueva in [place] 08/27/2020 11:14
== END ==
PROVIDERS: PCP Nurse Practitioner Family; Visit Provider Nurse Practitioner Family
DX: M54.41 Lumbago with sciatica, right side (principal)
CPT/HCPCS: 72110

== ENCOUNTER → 2020-09-04 14:01 | Outpatient (CLI) | payer MEDICARE, OTHER, SELFPAY ==
--- NOTE | 2020-09-04 14:09 | MR_ITS ---
PROCEDURE INFORMATION: Exam: MR Lumbar Spine Without Contrast Exam date and time: 09/04/2020 2:09 PM Age: 70 years old Clinical indication: Low back pain; Additional info: Lbp. Severe ddd. Lbp x2yrs. No injury or surgery. RT hip pain. Prior x-ray 08-27-20 TECHNIQUE: Imaging protocol: Multiplanar magnetic resonance images of the lumbar spine without intravenous contrast. COMPARISON: CR XR LUMBAR SPINE MIN 4V 08/27/2020 9:23 AM FINDINGS: Vertebrae: Trace 1-2 mm of grade 1 degenerative anterolisthesis of L3 on L4. No acute fracture seen. The lower lumbar AP spinal canal diameter is mildly diminished on a developmental basis due to somewhat shortened pedicles. T12 and L2 hemangiomas. The T12 hemangioma is partially lipid poor. Spinal cord: The conus medullaris ends normally. Disc desiccation throughout. No high-grade disc height. Mild to moderate thoracolumbar prevertebral spondylosis from T11-12 through L1-L2. Prevertebral spondylosis elsewhere is relatively minimal. L1-L2: Slight disc bulge and mild facet arthropathy. No stenoses. L2-L3: Aefm-xs-cqnxsgeg facet arthropathy and ligamentum flavum buckling. No significant central spinal canal stenosis. A small component of cranially migrating left foraminal to far lateral disc extrusion mildly narrowing the left foramen but not contributing to exiting nerve root impingement. The right neural foramen is patent. L3-L4: Slight anterolisthesis. Mild diffuse disc bulge. Marked facet arthropathy and ligamentum flavum central spinal canal and lateral recess stenoses are mild, in part on a developmental basis. The neural foramina remain patent. L4-L5: Severe facet arthropathy and moderate ligamentum flavum buckling. There is left facet joint effusion. Central spinal canal and lateral recess stenoses are mild, in part on a developmental basis. Mild left neural foraminal stenosis. No significant right neural foraminal narrowing. L5-S1: Moderate facet arthropathy, more so on the right. No stenoses. Soft tissues: Patchy nonspecific edema in the back subcutaneous fat, potentially dependent/positional. IMPRESSION: Advanced lower lumbar facet arthropathy. There is trace grade 1 degenerative anterolisthesis of L3 on L4. Mild central spinal canal and lateral recess stenoses at L3-L4 and L4-L5.
== END ==
PROVIDERS: PCP Nurse Practitioner Family; Visit Provider Nurse Practitioner Family
DX: M51.36 Other intervertebral disc degeneration, lumbar region (principal)
CPT/HCPCS: 72148; 76376

== ENCOUNTER → 2020-09-13 10:43 | Outpatient (CLI) | payer MEDICARE, OTHER, SELFPAY ==
[2020-09-13 11:38] LABS: Alanine Aminotransferase 23 U/L (12-78); Albumin Level 4.7 g/dl (3.5-5.0); Alkaline Phosphatase 78 U/L (38-126); Aspartate Amino Transferase 29 U/L (14-36); Bilirubin,Direct 0.4 mg/dl (0.0-0.4); Bilirubin,Indirect 0.2 mg/dL (0.0-0.9); Bilirubin,Total 0.6 mg/dl (0.2-1.3); Bilirubin,Unconjugated 0.2 mg/dL (0.0-1.1); Chol/HDL Ratio 3.9 (1-3.5); Cholesterol 177 mg/dl (140-200); HDL Cholesterol 45 mg/dl (40-60); Total Protein,Serum 7.3 g/dl (6.3-8.2); Triglycerides 384 mg/dl (30-150); VLDL Cholesterol 77 mg/dL (0-40)
[2020-09-13 11:50] LABS: Direct LDL Cholesterol 92.33 mg/dL (100-129)
== END ==
PROVIDERS: Visit Provider Nurse Practitioner Family
DX: E11.9 Type 2 diabetes mellitus without complications (principal); E78.2 Mixed hyperlipidemia; I10 Essential (primary) hypertension; I25.10 Atherosclerotic heart disease of native coronary artery without angina pectoris; I65.23 Occlusion and stenosis of bilateral carotid arteries; R06.02 Shortness of breath; Z79.84 Long term (current) use of oral hypoglycemic drugs; Z87.891 Personal history of nicotine dependence
CPT/HCPCS: 36415; 80061; 80076

== ENCOUNTER → 2021-01-06 16:21 | Outpatient (CLI) | payer MEDICARE, OTHER, SELFPAY ==
[2021-01-06 16:24] LABS: Adenovirus F 40/41, stool Not Detected (NotDetected); Campylobacter Not Detected (NotDetected); Clostridium Difficile A/B, PCR Not Detected (NotDetected); Cryptosporidium Not Detected (NotDetected); Cyclospora Cayetanesis Not Detected (NotDetected); Entamoeba histolytica Not Detected (NotDetected); Enteroaggregative E coli Not Detected (NotDetected); Enteropathogenic E coli Not Detected (NotDetected); Enterotoxigenic E coli Not Detected (NotDetected); Giardia lamblia Not Detected (NotDetected); Norovirus Not Detected (NotDetected); Plesimonas Shigalloides, PCR Not Detected (NotDetected); Rotavirus A Not Detected (NotDetected); Salmonella, PCR Not Detected (NotDetected); Sapovirus Not Detected (NotDetected); Shiga-like toxin E coli Not Detected (NotDetected); Shigella Enterovasive E coli Not Detected (NotDetected); Vibrio Cholerae Not Detected (NotDetected); Vibrio, PCR Not Detected (NotDetected); Yersinia Entercolitica, PCR Not Detected (NotDetected)
[2021-01-06 21:20] LABS: Astrovirus Detected (NotDetected)
== END ==
PROVIDERS: Visit Provider Nurse Practitioner Family
DX: R19.7 Diarrhea, unspecified (principal); R63.0 Anorexia; A08.32 Astrovirus enteritis
CPT/HCPCS: 87506

== ENCOUNTER → 2021-09-18 10:05 | Outpatient (CLI) | payer MEDICARE, OTHER, SELFPAY ==
--- NOTE | 2021-09-18 10:09 | CA_ITS ---
FINAL REPORT TECHNIQUE: Color Doppler, duplex Doppler and romo scale sonography of the bilateral neck arterial vasculature was performed. Velocities were measured in the carotid arteries. Stenosis evaluation based on the validated velocity criteria. CLINICAL HISTORY: Carotid artery disease,HTN,HLD,SMOKING HX FINDINGS: The peak systolic velocity of the right common carotid artery is 133 cm/s. The peak systolic velocity of the right internal carotid artery is 87 cm/s and end diastolic velocity 20 cm/s. The ICA/CCA ratio is 0.73. A mild amount of plaque is present. The right external carotid artery is patent. The right vertebral artery is patent with antegrade flow. The peak systolic velocity of the left common carotid artery is 124 cm/s. The peak systolic velocity of the left internal carotid artery is 84 cm/s and end diastolic velocity 15 cm/s. The ICA/CCA ratio is 0.67. A mild to moderate amount of plaque is present. The left external carotid artery is patent.The left vertebral artery is patent with antegrade flow. IMPRESSION: Less than 50% bilateral carotid stenosis. Bilateral patent vertebral arteries with antegrade flow. Reviewed, Interpreted and Dictated by Rasheed Franco III, MD Transcribed by Jaylin Cassidy Authenticated and [facility]
== END ==
PROVIDERS: PCP Nurse Practitioner Family; Visit Provider Physician Assistant
DX: I65.23 Occlusion and stenosis of bilateral carotid arteries (principal)
CPT/HCPCS: 93880

== ENCOUNTER → 2022-03-26 07:03 | Outpatient (CLI) | payer MEDICARE, OTHER, SELFPAY ==
--- NOTE | 2022-03-26 07:04 | NM_ITS ---
APPROVED REPORT Exam: Nuclear Stress Test Indication: short of breath Patient Location: Outpatient Stress Tech: Saira Alcocer LA Tech:Maribeth Cruz CESAR RT(R)(N) Ht: 5 ft 4 in Wt: 239 lbs Bra Size: 44d HR: 70 bpm BP: 163/68 mmHg BSA: 2.11 m2 TID: 1.15 BMI: 41.0 History: short of breath Procedure: Patient received a 0.4 mg of intravenous Lexiscan, resting heart rate 70 bpm, resting blood pressure 163/68 mmHg, with Lexiscan maximum heart rate achived was 101 bpm which is Less than 85 % of the maximum predicted heart rate and blood pressure was 163/68 mmHg. Electrocardiogram Resting electrocardiogram shows sinus rhythm nonspecific ST-T changes, with Lexiscan there is less than 1.[address] segment depression noted from the baseline EKG. The EKG portion of the Lexiscan is nondiagnostic. Cardiac Stress and Resting SPECT Images: Cardiac Stress and Resting SPECT images were obtained using technetium 99m Myoview 32.0 mCi stress and 10.95 mCi at rest. Gated SPECT analysis of segmental wall motion and calculation of the ejection fraction also done. Prone images were also obtained. Cardiac stress and rest SPECT images show uniform myocardial activity without segmental perfusion abnormality, computer derived ejection fraction is 65% with no regional wall motion abnormality, right ventricle is normal size and contractility. Conclusion: 1. The EKG portion of the Lexiscan is nondiagnostic. 2. No scintigraphic evidence of reversible ischemia seen, computer derived ejection fraction is 65% with no regional wall motion abnormality, right ventricle is normal size and contractility. 3. Normal Lexiscan Myoview study. Electronically signed by : Aneudy Dennison MD 03/27/2022 09:56:14
--- NOTE | 2022-03-26 07:04 | CA_ITS ---
APPROVED REPORT Exam: Pharmacologic Technologist: Saira Alcocer, Ht: 5 ft 4 in Wt: 242 lbs BSA: 2.12 m2 HR: 74 bpm BP: 163/68 mmHg Rhythm: NSR, NORMAL Medical History Medical History: HTN, , Hyperlipidemia, Diabetes Medications: Lisinopril,,,,, Aspirin,,,,, Metformin,,,,, Atorvastatin,,,,, Duoneb,,,,, Vit D3,,,,, Sonia,,,,, FeNOfibrate,,,,, Vit B12,,,,, Sertraline,,,,, NifEDIPINE,,,,, Ozempic,,,,, Allergies: SITAGLIPTIN Cardiac Risk Factors: HTN, Hyperlipidemia, Diabetes , Smoking Stress Test Details Test: LEXISCAN HR Resting HR: 70 bpm Max Heart Rate (APMHR): 150.945762 bpm Max HR Achieved: 101 bpm Target HR (85% APMHR): 127.425704 bpm % of APMHR: 67.33 Recovery HR: 83 bpm BP Resting BP: 163/68 mmHg Max BP: 163/68 mmHg Recovery BP: 145.0/61.0 mmHg ECG Resting ECG: NSR, NORMAL Clinical Exercise duration: 04:04 min Highest Stage Achieved: Stress ECG Conclusion PT HAD MILD SOA AND CHEST PRESSURE. NO SIGNIFICANT CHANGES. UNREMARKABLE LEXISCAN STRESS MYOVIEW IMAGES REPORTED SEPARATELY Test Summary REST 03:27 . . 70 . 163/ 68 . . Stage 1 01:00 . . 96 . . . . Stage 2 01:00 . . 92 . 162/ 64 . . Stage 3 01:00 . . 92 . 162/ 67 . . Stage 4 01:00 . . 83 . 149/ 66 . . Stage 4 01:04 . . 88 . 149/ 66 . Stop exercise at 04:04 RECOVERY 01:00 . . 83 . . . . RECOVERY 02:00 . . 82 . 153/ 66 . . RECOVERY 03:00 . . 79 . 145/ 61 . . RECOVERY 04:00 . . 78 . 145/ 61 . . RECOVERY 04:25 . . 86 . 135/ 61 . . Electronically signed by : Aneudy Dennison MD 03/27/2022 09:54:06
== END ==
PROVIDERS: PCP Nurse Practitioner Family; Visit Provider Physician Assistant
DX: E11.9 Type 2 diabetes mellitus without complications (principal); E78.2 Mixed hyperlipidemia; I11.9 Hypertensive heart disease without heart failure; I25.10 Atherosclerotic heart disease of native coronary artery without angina pectoris; I65.23 Occlusion and stenosis of bilateral carotid arteries; R06.02 Shortness of breath; Z79.84 Long term (current) use of oral hypoglycemic drugs
CPT/HCPCS: 78452; 93017; A9502; J2785

== ENCOUNTER → 2022-07-30 14:07 | Outpatient (CLI) | payer MEDICARE, OTHER, SELFPAY ==
--- NOTE | 2022-07-30 14:11 | MR_ITS ---
FINAL REPORT CLINICAL HISTORY: VERTIGO [id number] FINDINGS: Multiplanar MR imaging of the brain was performed without contrast. There is mild age-appropriate atrophy. There are scattered foci of increased T2 signal in the cerebral white matter that have a nonspecific appearance but likely represent mild chronic ischemic/gliotic changes. There is no evidence of intracranial hemorrhage or mass. No abnormal ventricular dilatation is identified. No abnormal extra-axial fluid collection is seen. No abnormality is seen on the diffusion weighted images. The posterior fossa and brainstem are unremarkable. Normal major vessel vascular flow voids are seen. IMPRESSION: Age-appropriate atrophy and mild chronic ischemic/gliotic changes. No acute intracranial abnormality. Reviewed, Interpreted and Dictated by Rasheed Franco III, MD Transcribed by Mehnaz Stock Authenticated and [facility]
== END ==
PROVIDERS: PCP Internal Medicine Cardiovascular Disease; Visit Provider Nurse Practitioner Family
DX: R42 Dizziness and giddiness (principal)
CPT/HCPCS: 70551

== ENCOUNTER → 2022-10-15 11:11 | Outpatient (CLI) | payer MEDICARE, OTHER, SELFPAY ==
--- NOTE | 2022-10-15 11:18 | XR_ITS ---
FINAL REPORT CLINICAL HISTORY: Lumbar back pain COMPARISON: 08/27/2020 FINDINGS: 5 views of the lumbar spine were obtained. There is no evidence of fracture or dislocation. The vertebral alignment is normal. There is mild S-shaped curvature of the lumbar spine. Mild and moderate degenerative change. Vascular calcifications are noted. No paraspinous soft tissue abnormalities identified. IMPRESSION: No acute bony abnormality. Reviewed, Interpreted and Dictated by Rasheed Franco III, MD Transcribed by Ana Lilia Mata Authenticated and [facility]
== END ==
PROVIDERS: PCP Nurse Practitioner Family; Visit Provider Nurse Practitioner Family
DX: M54.50 Low back pain, unspecified (principal)
CPT/HCPCS: 72110

== ENCOUNTER → 2022-10-21 13:11 | Outpatient (CLI) | payer MEDICARE, OTHER, SELFPAY ==
--- NOTE | 2022-10-21 13:14 | MR_ITS ---
FINAL REPORT CLINICAL HISTORY: DORSALGIA OF LUMBAR REGION COMPARISON: 09/04/2020 FINDINGS: Multiplanar MR imaging of the lumbar spine was performed without contrast. On the sagittal T2-weighted images, disc degeneration is seen throughout. There is mild anterolisthesis of L3 on L4. There is no evidence of fracture. No bony mass is identified. The conus has an unremarkable appearance. T12-L1: An annular bulge is present with osteophytes. There is no significant canal stenosis or neural foraminal narrowing. L1-2: An annular bulge is present. There is no significant canal stenosis or neural foraminal narrowing. L2-3: An annular bulge is present. There is no significant canal stenosis or neural foraminal narrowing. L3-4: An annular bulge is present with facet osteoarthropathy. There is a small left foraminal disc protrusion with mild left neural foraminal narrowing. There is no significant canal stenosis. L4-5: An annular bulge is present with facet osteoarthropathy. There is mild bilateral neural foraminal narrowing but no significant canal stenosis. L5-S1: An annular bulge is present with facet osteoarthropathy. There is mild bilateral neural foraminal narrowing but no significant canal stenosis. IMPRESSION: Multilevel degenerative disc disease and spondylosis as described. Reviewed, Interpreted and Dictated by Rasheed Franco III, MD Transcribed by Seda Hoang Authenticated and . [facility]
== END ==
PROVIDERS: PCP Nurse Practitioner Family; Visit Provider Nurse Practitioner Family
DX: M54.50 Low back pain, unspecified (principal); M54.9 Dorsalgia, unspecified
CPT/HCPCS: 72148; 76376

== ENCOUNTER → 2023-02-09 11:34 | Outpatient (CLI) | payer MEDICARE, OTHER, SELFPAY ==
[2023-02-09 11:43] LABS: Adenovirus F 40/41, stool Not Detected (NotDetected); Astrovirus Not Detected (NotDetected); Campylobacter Not Detected (NotDetected); Clostridium Difficile A/B, PCR Not Detected (NotDetected); Cryptosporidium Not Detected (NotDetected); Cyclospora Cayetanesis Not Detected (NotDetected); Entamoeba histolytica Not Detected (NotDetected); Enteroaggregative E coli Not Detected (NotDetected); Enteropathogenic E coli Not Detected (NotDetected); Enterotoxigenic E coli Not Detected (NotDetected); Giardia lamblia Not Detected (NotDetected); Norovirus Not Detected (NotDetected); Plesimonas Shigalloides, PCR Not Detected (NotDetected); Rotavirus A Not Detected (NotDetected); Salmonella, PCR Not Detected (NotDetected); Shiga-like toxin E coli Not Detected (NotDetected); Shigella Enterovasive E coli Not Detected (NotDetected); Vibrio Cholerae Not Detected (NotDetected); Vibrio, PCR Not Detected (NotDetected); Yersinia Entercolitica, PCR Not Detected (NotDetected)
[2023-02-12 12:31] LABS: Sapovirus Detected (NotDetected)
== END ==
PROVIDERS: PCP Nurse Practitioner; Visit Provider Nurse Practitioner
DX: R19.7 Diarrhea, unspecified (principal); A08.11 Acute gastroenteropathy due to Norwalk agent
CPT/HCPCS: 87045; 87205; 87506

== ENCOUNTER 2023-04-02 13:18 | Outpatient (CLI) | payer MEDICARE, OTHER, SELFPAY ==
--- NOTE | 2023-04-02 13:19 | CA_ITS ---
APPROVED REPORT EXAM: Comprehensive 2D, Doppler, and color-flow Echocardiogram Ems Director: Valerie Mcgrath RVT Ht: 5 ft 4 in Wt: 242lbs BSA: 2.12 BP: 136/58 mmHg Indications: SOA,CAD,HTN,DM,HLD,PRIOR PERICARDIAL EFFUSION TDS R/T PT BODY HABITUS 2D Dimensions LA Volume 66.00 mL LA Volume Index 31.13 mL/m2 (M/F) 16-34 M-Mode Dimensions RVDd 2.63 cm (0.9-2.6) LA Diam 5.34 cm (1.9-4.0) LVDd 2.63 cm (3.5-5.7) LVDs 1.23 cm (3.5-5.7) IVSd 1.40 cm (0.6-1.1) PWd 0.81 cm (0.6-1.1) EF (Teich) 85.80% FS 53.20% EDV (Teich) 25.30 mL TAPSE 2.56 (<1.7) ESV (Teich) 3.60 mL LV Diastology E Decel Time 150 (160-240 msec) E/A Ratio 1.8 Aortic Valve YANIRA Index 1.04 cm2/m2 AoV Peak Duc. 201.0 (50-130 cm/s) AO Peak GR. 16.20 mmHg AO Mean GR. 8.40 (<5 mmHg) AO VTI 42.9 (18-25 cm) YANIRA (VTI) 2.25 (2.5-4.5 cm2) Mitral Valve MV E Max Duc. 143.0 (40-130 cm/s) MV A Velocity 81.0 (40-130 cm/s) E/A Ratio 1.78 MV PHT 44.0 ms Pulmonary Valve PV Peak Velocity 54.0 (50-150 cm/s) Tricuspid Valve TR P. Velocity 205.00 cm/s RAP Estimate 10.00 mmHg RVSP 26.80 mmHg Left Ventricle The left ventricle is normal size. The left ventricular systolic function is normal. The left ventricular ejection fraction is within the normal range. There is increased LV wall thickness. There is normal LV segmental wall motion. Diastolic function is indeterminate. LVEF is 55%. Right Ventricle The right ventricle is normal size. The right ventricular systolic function is normal. Atria The left atrium size is normal. The right atrium size is normal. There is no Doppler evidence of interatrial shunt. Aortic Valve The aortic valve is mildly thickened. There is no aortic valvular stenosis. Trace aortic regurgitation is present. Mitral Valve The mitral valve leaflets are mildly thickened. No evidence of mitral valve stenosis. Trace mitral regurgitation. Tricuspid Valve The tricuspid valve leaflets are thin and pliable. Trace tricuspid regurgitation. There is insufficient TR jet to estimate RVSP. Pulmonic Valve The pulmonary valve is not well-visualized. Trace pulmonic regurgitation. Great Vessels The aortic root is normal in size. The ascending aorta is normal in size. IVC is normal in size and collapses >50% with inspiration. Pericardium Trivial anterior pericardial effusion. No echo indications of tamponade. Other Information Study Quality: Technically Difficult Conclusion Technically difficult study due to poor acoustic windows. Normal biventricular systolic function. No significant valvular stenosis or regurgitation. Trivial anterior pericardial effusion. Electronically signed by : Becky Lamb MD 04/05/2023 12:36:22
== END 2023-04-02 23:59 ==
LOC: RT 13:19
PROVIDERS: PCP Nurse Practitioner; Visit Provider Nurse Practitioner Family
DX: R06.00 Dyspnea, unspecified; I51.7 Cardiomegaly; I25.10 Atherosclerotic heart disease of native coronary artery without angina pectoris; E11.9 Type 2 diabetes mellitus without complications; E78.5 Hyperlipidemia, unspecified; I65.29 Occlusion and stenosis of unspecified carotid artery; I10 Essential (primary) hypertension; Z79.84 Long term (current) use of oral hypoglycemic drugs; Z87.891 Personal history of nicotine dependence
CPT/HCPCS: 93306

== ENCOUNTER 2025-02-11 10:21 | Emergency (ER) | payer MEDICARE, OTHER, SELFPAY ==
[2025-02-11] VITALS (8 sets, daily range): BP systolic 119–147; BP diastolic 54–62; PULSE 67–80; RESP 20; TEMP 36.6–36.8; O2SAT 94–96; BMI 38.6
--- OUTSIDE RECORDS SUMMARY | 2025-02-11 10:37 | XMS_ITS | Data Portability ---
Author [facility] [place] [facility] Address [address] [place] [address] Care Team Providers Care Strategic Partnership Specialist Name Role Phone ANNABELLE LARIOS Referring Provider Assessment Encounter Date Assessment Date Assessment LastModified by Organization Details LastModified Time 04/03/2022 04/03/2022 Discussion was had with patient in clinic today regarding treatment options including both conservative and surgical management. My recommendation was to begin with conservative management to include a corticosteroid injection of the involved trigger thumb, to which patient consented for in clinic today. If this fails to improve symptoms or should symptoms return, I explained that we could either attempt one additional corticosteroid injection versus proceed with surgical trigger thumb release at that time. Patient will return to the office on an as-needed basis if symptoms persist or recur over time. [email or web address] Not available 04/03/2022 13:51:52 Plan of Treatment Reminders Order Date Submit Date Provider Last Modified By Organization Details Last Modified Time Details Appointments None record ed. Lab None record ed. Referral None record ed. Procedures None record ed. Surgeries None record ed. Imaging None record ed. Medication Orders None record ed. Patient TargetsNo targets recorded. Patient Instructions Encounter Date Encounter Id Patient Instructions Last Modified By Organization Details Last Modified Time 09/08/2022 [id number] 1. Audiogram obtained and discussed with patient (09/08/22 SRT 15 RT, 20 LT ; WDS 55 RT, 60 LT) 2. Recommended to [facility] for vertigo symptoms 3. f/u [email or web address] Not available 09/08/2022 16:21:49 positional vertigo not improving with her current physical therapist; will need to get her set up with [facility] in [place] for management [email or web address] Not available 09/08/2022 16:32:22 Reason for Referral None Reported. Results Created Date Observation Date Name Description Value Unit Range Abnormal Flag Note LastModifiedBy Organization Detail LastModifiedTime 09/10/19 23 09/08/2022 audio gram No observ ation record ed. BARCODE Not Available 2022 10:34:04 Result Notes None recorded. Problems No Known Problems Procedures Surgical History Date Name Laterality Status Provider Name and Address Organization Details Recorded Time 09/09/19 Tympanogram completed MICAH HAHN, AUD [address] [place], [address], [facility] 09/08/2022 15:53:53 09/09/19 Audiogram completed MICAH HAHN AUD [address] [place], [address], [facility] 09/08/2022 15:53:51 04/03/19 Injection - Trigger Finger, Ortho completed LOVELY JEAN BAPTISTE MD [address] [place], [address], [facility] 04/03/2022 13:20:11 hysterectomy completed Argelia German [facility] 09/08/2022 15:30:34 Imaging Results None recorded. Procedure Notes None recorded. Medical Equipment None Reported. Allergies Allergen ID Allergen Name Allergen Category Reaction Reaction Severity Criticality Documentation Date Start Date Code Code System Note Provider Name and Address Organization Details Recorded Time [id number] Jardiance medicatio n Not available Not available Not available 04/03/2022 15338 59 [facility] 12:52:44 Medications Name Sig Start Date Stop Date Status Note LastModified by Organization Details LastModified Time nifedipine ER 30 mg tablet,exten ded release Take 1 tablet every day by oral route. active Not Available Not Available No t Available amoxicillin 875 mg tablet TAKE 1 TABLET BY MOUTH TWICE DAILY FOR 10 DAYS 04/03 completed Not Available Not Available Not Available cefdinir 300 mg capsule TAKE 1 CAPSULE BY MOUTH TWICE DAILY FOR 10 DAYS 04/03 completed Not Available Not Available Not Available fluticasone propionate 50 mcg/actuatio n nasal spray,suspen sweta INSTILL 2 SPRAYS IN EACH NOSTRIL ONCE A DAY 04/03 completed Not Available Not Available Not Available sertraline active Not Available Not Av ailable Not Available atorvastatin active Not Available Not Available Not Available aspirin active Not Available Not Avail able Not Available lisinopril active Not Available Not Av ailable Not Available metformin active Not Available Not Diana ilable Not Available fenofibrate active Not Available Not A vailable Not Available levocetirizi ne 5 mg tablet TAKE 1 TABLET BY MOUTH EVERY DAY IN THE EVENING 04/03 completed Not Available Not Available Not Available Ozempic active Not Available Not Avail able Not Available Vitals Date Recorded Body weight Body mass index (BMI) Body height Provider Name and Address Organization Details Last Updated DateTime 04/03/2022 563347.58 g 41 kg/m2 162.56 cm Makeda Posadas [facility] 04/03/2022 12:52:32 Date Recorded Body height Body mass index (BMI) Body weight Body temperature Heart rate Systolic And Diastolic Provider Name and Address Organization Details Last Updated DateTime 3 165.1 cm 41.5 kg/m2 820690. 2 g 97.2 [degF] 75 /min 148/63 mm[Hg] Argelia Monserrat [facility] 3 15:33:38 Social History Question Answer Notes LastModified by Organizat ion Details LastModified Time Tobacco Smoking Status Former Smoker Makeda Posadas [facility] 04/03/2022 12:51:05 What Is Your Level Of Caffeine Consumption? Occasional Information not available 04/03/2022 When Did You Quit Smoking? 16+yearssincel astcigarette Information not available 04/03/2022 What Is Your Relationship Status? Information not available 04/03/2022 Sex: Unknown Functional Status Question Answer Note LastModified by Organization D etails LastModified Time What is your level of alcohol consumption? None Information not available 04/03/2022 Are you currently employed? No Information not available 04/03/2022 Mental Status None recorded. Family History Relationship Description Onset Age of this Age Resolved Age Notes LastModified by Organization Details LastModified Time Mother Hypertensive disorder [email or web address] Not available 2022 15:29:59 Medical History Condition Response Kidney Stones N Hyperthyroidism N Heart Arrhythmia N Emphysema N Esophagus/swallowing troubles N Glaucoma N Lung Disease N Depression N Hypothyroidism N Anesthesia Complications N Anxiety Disorder N Arthritis N Hearing Loss N Acid Reflux (GERD) N Cancer N Stroke N Hoarseness N Alcohol Overuse/Alcohol Abuse N High Cholesterol N Liver Disease N Snoring problems N Headaches N Kidney Disease N Allergies/Hayfever N Heart Problems N Mental handicap N Ear or Hearing Problems N Gallbladder Disease N Migraines Y Thyroid Problems N Goiter N Anemia N Immune System Disorder N Chest Pain N Stomach trouble N Heart Attack ([place]) N Ulcers N Diabetes Y Rheumatic Fever N Bleeding Disorder N Tuberculosis N AIDS/HIV N Hyperlipidemia N Asthma N Epilepsy/Seizures N Sleep Disorder Y Hepatitis N Heart Disease N Hypertension Y Gynecological HistoryNo gynecological history recorded. Obstetrics History GPAL:G 0 P 0 0 0 0 Past Encounters Encounter ID Performer Location Encounter Start Date Encounter Closed Date Diagnosis/Indication Diagnosis SNOMED-CT Code Diagnosis ICD10 Code Diagnosis IMO Codes Diagnosis Note [id number] LOVELY JEAN BAPTISTE MD [facility] CL[facility] [address] [place] [address] 04/03/2022 12:24:48 04/03/2022 13:45:16 Trigger thumb of left hand 2101562009 82988 M65.312 Left trigger thumb (CSI: 04/03/2022) [id number] MD QUIRINO GRIJALVA [facility] CLOS[facility] [address] [place] [address] 09/08/2022 15:13:58 09/08/2022 16:27:58 Dizziness 576208584 R42 Sensorineu ral hearing loss of bilateral ears 417696275 H90.3 Audiogram obtained 09/08/22 SRT 15 RT, 20 LT ; WDS 55 RT, 60 LT Benign par oxysmal positional vertigo 682218066 H81.10 [id number] ROMAN PACHECO [facility] N [facility] CLOSED [address] [place] [address] 09/08/2022 15:15:54 09/08/2022 16:14:38 Dizziness 127294890 R42 Bilateral tinnitus 90798 95161 102 H93.13 Sensorineu ral hearing loss of bilateral ears 160289526 H90.3 Health Concerns Section Related Observation LastModified by Organization Detai ls LastModified Time None Recorded Concern Status LastModified by Organization Details LastModified Time None Recorded Advance Directives Directive None Recorded Payers Insurance Date Sequence Insurance Name Policy Number Policy Mae Covered Member ID Mae Member ID Guarantor Name 09/05/2022 2 FOR LIFE ( - MEDICARE SUPPLEMENT) Andrew Rosales [id number] Manuela Rosales 08/17/2022 1 [place] Manuela Rosales [id number] Manuela Rosales Notes Date Note Type Note Provider Name and Address Organization Details Recorded Time 04/03/2022 text/html Patient is a 71-year-old [id number] female who is retired. She is seen in consultation today for evaluation of a 2-month history of progressive catching and locking of her left thumb. Symptoms have not yet require manipulation to straighten it from a locked position. She does have a history of diabetes. [facility] Physician: Annabelle Larios APRN Hand dominance: LeftLocation: Left Hand thumb Pain level: 1 /10 discomfort Duration: 2 months Recent Surgery: NoProcedure:Date of surgery:Duration: In office procedure? No Previous upper extremity surgery? NoProcedure:Approx imate date of surgery:Surgeon (if known):Have you or any of your immediate family members been seen by our hand surgeons before? No Currently employed?: RetiredEmployer:Oc cupation: Are they currently working? No Is this injury associated with a Workers Compensation claim? No Patient arrived in: n/a Drum Maker Strength: right: left:Ms. Rosales is here for lt thumb catching and locking. She says this started about 2 months. It started with cracking and has gradually gotten worse. LOVELY JEAN BAPTISTE MD [facility] [place], [address], [facility] 04/03/2022 13:51:56 09/08/2022 text/html Manuela comes in today for consultation at the request of for an evaluation of dizziness. Since may she has experience vertigo symptoms. She reports the room to feel like it spins at time. Rolling over in bed gives Manuela trouble and makes her feel dizzy. She has taken meclizine for her vertigo symptoms with little help. She also has been going to PT which has helped a little bit. MARLIN BRAY MD [facility] [place], [address], [facility] 09/08/2022 16:33:30 OBGyn Episode No OBEpisode recorded.
--- NOTE | 2025-02-11 10:44 | XR_ITS ---
PROCEDURE INFORMATION: Exam: XR Left Hip Exam date and time: 02/11/2025 10:40 AM Age: 74 years old Clinical indication: Hip pain; Left hip TECHNIQUE: Imaging protocol: Radiologic exam of the left hip. Views: 2 or 3 views hip with pelvis when performed. COMPARISON: MR LUMBAR SPINE WO CON 10/21/2022 1:08 PM FINDINGS: Bones/joints: Moderate degenerative changes of both hips and lumbar spine . There is no evidence of acute fracture.There is no evidence of malalignment or dislocation. Soft tissues: Unremarkable. IMPRESSION: 1. Moderate degenerative changes of both hips and lumbar spine . 2. There is no evidence of acute fracture.There is no evidence of malalignment or dislocation.
--- NOTE | 2025-02-11 10:44 | XR_ITS ---
PROCEDURE INFORMATION: Exam: XR Lumbosacral Spine Exam date and time: 02/11/2025 10:43 AM Age: 74 years old Clinical indication: Low back pain TECHNIQUE: Imaging protocol: Radiologic exam of the lumbosacral spine. Views: 2 or 3 views. COMPARISON: MR LUMBAR SPINE WO CON 10/21/2022 1:08 PM FINDINGS: Bones/joints: There is no evidence of acute fracture.There is no evidence of malalignment or dislocation. Intervertebral disc spaces are maintained. Anterior osteophyte formation L1 through L5 Soft tissues: Unremarkable. IMPRESSION: 1. There is no evidence of acute fracture.There is no evidence of malalignment or dislocation. 2. Intervertebral disc spaces are maintained.
[2025-02-11] MEDS: CYCLOBENZAPRINE 10MG TABLET 5 MG PO (11:01)
[2025-02-11] MEDS: KETOROLAC 15MG/ML VIAL 15 MG IM (11:01)
--- NOTE | 2025-02-11 11:01 | [facility].EDGENADL ---
Discharge Plan Disposition Patient Disposition: Home, Self-Care Prescriptions Prescriptions: New meloxicam 15 mg tablet 15 mg PO DAILY Qty: 14 0RF cyclobenzaprine 10 mg tablet 10 mg PO HS Qty: 30 0RF No Action aspirin [Adult Low Dose Aspirin] 81 mg tablet,delayed release (DR/EC) 81 mg PO QDAY metformin 500 mg tablet 1,000 mg PO BID fenofibrate 160 mg tablet 160 mg PO QDAY cyanocobalamin (vitamin B-12) [Vitamin B-12] 500 mcg tablet 500 mcg PO QDAY cholecalciferol (vitamin D3) 2,000 unit tablet 2,000 unit PO DAILY sertraline 25 mg tablet 25 mg PO DAILY Patient Comments: TAKE 1 TABLET BY MOUTH ONCE DAILY lisinopril 10 mg tablet 10 mg PO DAILY [id number] 5 mg-5 mg-37.5 mg-25 mg-1 mg capsule PO DAILY omega-3 fatty acids 1,000 mg capsule 1,000 mg PO BID nifedipine 30 mg tablet extended release 24hr 30 mg PO DAILY Ozempic 1 mg/dose (4 mg/3 mL) pen injector 1 mg SQ WEEKLY bisoprolol fumarate 10 mg tablet 10 mg PO DAILY Qty: 90 3RF atorvastatin 80 mg tablet See Rx Instructions .ROUTE .COMPLEX Qty: 90 1RF Dose Instruction: TAKE 1 TABLET DAILY Rx Instructions: TAKE 1 TABLET DAILY Referrals Follow up/Referrals: Lorena Lowe APRN [Primary Care Provider, Medical] - See instructions Activity Restrictions/Add. Instructions Additional Instructions/Restrictions: FU with pcp for further management, including PT and futher referral if indicated Clinical Impressions Clinical Impression: Sciatica Instructions Patient Instructions: DI for Low Back Pain Print Language Print Language: Japanese Discharge ED Provider: Dashawn Serrano Adult HPI General Chief complaint: Back Pain/Injury Stated complaint: lower left back pain Time Seen by Provider: 02/11/25 10:44 Mode of Arrival: Ambulatory Source of Information: Patient and Spouse Description of Symptoms (Recalled from ER Triage Doc. by RN): pt is here for left lower back pain x1 week that is worse upon mvmt. pt has been taking tylenol and using heating pad, denies any numbness or tingling going down into leg, no issues with urination or bowel mvmts, denies any falls or trauma, thinks it maybe sciatica History of Present Illness HPI narrative: Patient is a pleasant 74 yo female here for about a week of atraumatic back pain. worsens with movement. is in a water aerobics class and does not remember an acute injury, but is unsure if she aggrevated somehting. she states the pain is in her low back radiating into her but, but doesn't note anything signficiantly lower. denies fevers, chills, chest pain, n/v, abdominal pain. Related Data Home Medications ?Medication ?Instructions ?Recorded ?Confirmed aspirin 81 mg tablet,delayed 81 mg PO QDAY 04/07/17 01/17/25 release (Adult Low Dose Aspirin) fenofibrate 160 mg tablet 160 mg PO QDAY 04/07/17 01/17/25 metformin 500 mg tablet 1,000 mg PO BID 04/07/17 01/17/25 cyanocobalamin (vitamin B-12) 500 500 mcg PO QDAY 04/09/17 01/17/25 mcg tablet (Vitamin B-12) cholecalciferol (vitamin D3) 50 2,000 unit PO DAILY 05/04/17 01/17/25 mcg (2,000 unit) tablet sertraline 25 mg tablet 25 mg PO DAILY 03/19/20 01/17/25 B1 5 mg-B2 5 mg-B3 37.5 mg-B5-B6 cap PO DAILY 03/19/22 01/17/25 25 mg-folic acid 1 mg-B12-C capsule lisinopril 10 mg tablet 10 mg PO DAILY 03/19/22 01/17/25 nifedipine 30 mg tablet,extended 30 mg PO DAILY 09/17/22 01/17/25 release 24 hr semaglutide 1 mg/dose (4 mg/3 mL) 1 mg SQ WEEKLY 09/17/22 01/17/25 subcutaneous pen injector (Ozempic) omega-3 fatty acids 1,000 mg 1,000 mg PO BID 09/24/22 01/17/25 capsule Previous Rx's ?Medication ?Instructions ?Recorded bisoprolol fumarate 10 mg tablet 10 mg PO DAILY #90 tabs 02/07/24 atorvastatin 80 mg tablet See Rx Instructions .Route 02/05/25 .COMPLEX #90 tabs cyclobenzaprine 10 mg tablet 10 mg PO HS #30 tabs 02/11/25 meloxicam 15 mg tablet 15 mg PO DAILY #14 tabs 02/11/25 Allergies Allergy/AdvReac Type Severity Reaction Status Date / Time sitagliptin (From [facility]) AdvReac sob Verified 01/17/25 13:[address] [facility] Disclaimer: The information contained in this section may have been updated after the patient was seen, as this information can be updated by other users. Medical History History of ectopic Abnormal stress test Murmur, cardiac HLD (hyperlipidemia) HTN (hypertension) Cardiomegaly Diabetes mellitus with polyneuropathy Type 2 diabetes mellitus without complication, with long-term current use of insulin Carotid artery stenosis HHD (hypertensive heart disease) CAD (coronary artery disease) Surgical History H/O total hysterectomy H/O heart artery stent 3 stents History of cholecystectomy Family History Mother , 95 y/o Cancer Breast Father , 87 y/o No problems noted. Social History Smoking Status: Never smoker alcohol intake: never substance use type: denies use current occupational status: other Travel in the last 8 weeks?: None household members: spouse current occupational exposures/hazards: No Have you lived/traveled outside [place] in past 30 days?: No Contact w/someone who lives/traveled outside [place] past 30 days?: No Exposure to someone with infectious disease in past 14 days?: No Do you have a fever (greater than 100.4 F or 38 C)?: No Have you tested positive for COVID-19?: No Exposed to someone with COVID-19 in past 14 days?: No Do you have a sore throat?: No Do you have a cough?: No Do you have any weakness?: No Do you have any diarrhea?: No Are you experiencing any unusual bleeding?: No Do you have any muscle aches/pain?: No Do you have any abdominal pain?: No Are you experiencing loss of taste or smell?: No Other Medical History Have you received the Flu Vaccine for this season: Yes Have you received the Pneumonia Vaccine: No ROS Obtained: Yes All systems reviewed & no additional complaints except as documented Physical Exam General General appearance: alert Respiratory Respiratory exam: Present other (normal effort on room air ) Cardiovascular Cardiovascular exam: Present regular rate Neurological Exam Neurological exam: Present other (no motor weakness in bilateral lower extremities, slump test negative, no significant pain with fabir or fader testing ) Medical Decision Making Medical Records Medical records reviewed: Yes I reviewed the patient's medical records. Screening: Per USPSTF and CDC recommendations, given the prevalence of disease in our region, it is our hospital?s policy to screen for HIV and viral Hepatitis for all patients aged 18 and over and those with ongoing risk factors. Fabian Inquiry Pt receiving controlled substance: No Vital Signs: 02/11/25 10:27 02/11/25 10:28 02/11/25 10:30 Temperature 97.8 F Temperature Source Oral Pulse Rate 79 80 Pulse Rate [Left Radial] 78 Respiratory Rate 20 Blood Pressure 147/62 H 119/58 L Blood Pressure [Right Arm] 147/62 H Blood Pressure Mean [Right Arm] 90 02 Sat by Pulse Oximetry 95 95 96 Oxygen Delivery Method Room Air Room Air Room Air 02/11/25 10:45 02/11/25 11:01 02/11/25 11:15 Temperature Temperature Source Pulse Rate 75 77 76 Pulse Rate [Left Radial] Respiratory Rate Blood Pressure 126/54 L 123/58 L Blood Pressure [Right Arm] Blood Pressure Mean [Right Arm] 02 Sat by Pulse Oximetry 95 94 L 96 Oxygen Delivery Method Room Air Room Air Room Air 02/11/25 11:30 02/11/25 11:53 Temperature 98.2 F Temperature Source Pulse Rate 67 69 Pulse Rate [Left Radial] Respiratory Rate 20 Blood Pressure 130/60 130/58 L Blood Pressure [Right Arm] Blood Pressure Mean [Right Arm] 02 Sat by Pulse Oximetry 95 Oxygen Delivery Method Room Air Room Air Orders (Tests/Meds): ED MEDICATIONS Discontinued Medications Generic Name Dose Route Start Last Admin Trade Name Freq PRN Reason Stop Dose Admin Cyclobenzaprine HCl 5 mg 02/11/25 10:45 02/11/25 11:01 Cyclobenzaprine 10mg Tablet PO 02/11/25 10:46 5 mg ONCE ONE Administration Ketorolac Tromethamine 15 mg 02/11/25 10:45 02/11/25 11:01 Ketorolac 15mg/Ml Vial IM 02/11/25 10:46 15 mg ONCE ONE Administration ORDERS Category Date Time Status Hip XR left minimum 2 views [XR hip LT 2-3V w/pelvis] Exams 02/11/25 10:44 Completed Stat XR lumbar spine 2-3V Stat Exams 02/11/25 10:44 Completed Medical Decision Narrative: Patient is a 74 yo female with back and buttock pain that is atraumatic. on physical exam, she did not have asymmetic weakness in her lower extremities. she also denied red-flag symptoms of fecal or urinary incontinence. x-rays obtained showing degenerative changes of back and hip. she had significant improvement of pain with IM toradol and flexeril. prescribed 2 weeks of mobic and flexeril for symptom control. encouraged pcp follow-up for consideration of pt followed by possible injections if she is not adequately response. return precautions given for intractable pain or red flag symptoms. Critical Care Critical Care Time Critical Care Time: No
== END 2025-02-11 11:54 | disposition home or self-care (01) ==
PROVIDERS: Emergency Provider Student in an Organized Health Care Education/Training Program; PCP Nurse Practitioner
DX: M54.32 Sciatica, left side (principal)
CPT/HCPCS: 72100; 73502; 96372; 99284; J1885

== ENCOUNTER 2025-03-13 10:38 | Outpatient (RCR) | payer MEDICARE, OTHER, SELFPAY | END 2025-03-13 23:59 | disposition home or self-care (01) | LOC: PT 10:38 | PROVIDERS: PCP Nurse Practitioner; Visit Provider Nurse Practitioner | DX: M54.30 Sciatica, unspecified side (principal) | CPT/HCPCS: 97162 ==